=== PATIENT | male | born 1955 | race Caucasian/White ===

== ENCOUNTER → 2016-07-19 | Outpatient (CLI) | payer BC | END | disposition home or self-care (01) | LOC: GMAL 10:22 | PROVIDERS: ATTEND Family Medicine | DX: D51.3 Other dietary vitamin B12 deficiency anemia (principal); Z12.5 Encounter for screening for malignant neoplasm of prostate ==

== ENCOUNTER → 2018-06-25 | Outpatient (CLI) | payer BC ==
--- NOTE | 2018-06-25 18:15 | CT ---
PROCEDURE: CT Head Without Intravenous Contrast CLINICAL INDICATION: The patient is 63 years years old, Male; R42 TECHNIQUE: Axial computed tomography images of the head/brain without intravenous contrast. Sagittal and coronal reformatted images were created and reviewed. This CT exam was performed using one or more of the following dose reduction techniques: automated exposure control, adjustment of the mA and/or kV according to patient size, and/or use of iterative reconstruction technique. COMPARISON: No relevant prior studies available. FINDINGS: BRAIN: No intracerebral or extracerebral mass lesions are identified. Carney/white matter distinction is maintained. There is no evidence of intracranial hemorrhage. There is no evidence of acute territorial infarct. (It should be noted that acute infarct may not be discernible in the first [address] ) MIDLINE SHIFT: There is no shift of the midline structures. VENTRICLES: There is mild prominence of the ventricles, sulci, cerebellar folia, and basilar cisterns consistent with volume loss. BONES/JOINTS: There is no acute calvarial abnormality or other discernible acute osseous abnormalities. SOFT TISSUES: Unremarkable. VASCULATURE: There is atherosclerotic calcification in the siphons of the bilateral internal carotid and dominant left vertebral arteries. SINUSES: The visualized paranasal sinuses are clear. MASTOID AIR CELLS: The mastoids and middle ears are clear. IMPRESSION: 1. No acute intracranial abnormality. (It should be noted that acute infarct may not be discernible in the first [address]) a follow-up head ct or mri is recommended if neurologic symptoms persist. 2. Volume loss. 3. ASVD. 4. Remainder of findings as discussed above. Electronically signed by: Rae Goff MD 06/25/2018 6:12 PM CDT
== END ==
LOC: CT 16:32
PROVIDERS: ATTEND Physician Assistant
DX: R42 Dizziness and giddiness (principal); I70.90 Unspecified atherosclerosis

== ENCOUNTER → 2019-11-02 | Outpatient (CLI) | payer BC, MEDICARE | LOC: GMAL 10:39 | PROVIDERS: ATTEND Family Medicine | DX: R53.83 Other fatigue (principal); I20.8 Other forms of angina pectoris; Z79.899 Other long term (current) drug therapy ==